=== PATIENT | female | born 1945 | race Caucasian/White ===

== ENCOUNTER 2018-05-14 14:06 | Emergency (ER) | payer OTHER ==
--- NOTE | 2018-05-14 15:03 | ED UPPER/LOWER EXTREMITY COMPL ---
History of Present Illness General Chief Complaint: Fall Stated Complaint: KNEE PAIN RADIATING UP AND DOWN S/P FALL LAST PM Source: patient Exam Limitations: no limitations Vital Signs & Intake/Output Vital Signs & Intake/Output Vital Signs Date Time Temp Pulse Resp B/P B/P Pulse O2 O2 Flow FiO2 Mean Ox Delivery Rate 05/14 1629 74 18 155/82 97 05/14 1621 Room Air 05/14 1411 98.1 98 15 126/78 95 Room Air Room Air Triage Note: PT TO ED FOR L KNEE PAIN S/P FALL YESTERDAY. PAIN RADIATES UP AND DOWN L LEG. MEDICATED IN TRIAGE. Triage Nurses Notes Reviewed? yes Onset: Abrupt Duration: day(s): (1), constant, continues in ED Timing: recent history Severity: moderate, severe No Modifying Factors: none HPI: 72-year-old female comes into the emergency room with complaints of left knee pain. Patient reports that she fell yesterday onto pavement. Some associated swelling and pain to the left knee. She has pain primarily behind her knee since the fall. It shoots up and down her leg. She comes in for further evaluation. (Biju Guerrero) Allergies Coded Allergies: Penicillins (THROAT CLOSES 05/14/18) cefuroxime (THROAT CLOSES 05/14/18) Reconcile Medications Meloxicam (Mobic) 7.5 MG TABLET 1 TAB PO DAILY pain (Rustam Staples DO) Past History Travel History Traveled to [place] past 21 day No Medical History Any Pertinent Medical History? see below for history Neurological: NONE EENT: NONE Cardiovascular: hypertension, hyperlipidemia Respiratory: COPD Gastrointestinal: NONE Hepatic: NONE Renal: NONE Musculoskeletal: NONE Psychiatric: NONE Endocrine: NONE Blood Disorders: NONE Cancer(s): NONE History of MRSA: No History of VRE: No History of CDIFF: No Surgical History Surgical History: non-contributory Psychosocial History Who do you live with Family Services at Home None What is your primary language Icelandic Tobacco Use: Quit >30 days ago ETOH Use: denies use Illicit Drug Use: denies illicit drug use Family History Hx Contributory? No (Biju Guerrero) Review of Systems Review of Systems Constitutional: Reports: no symptoms. EENTM: Reports: no symptoms. Respiratory: Reports: no symptoms. Cardiovascular: Reports: no symptoms. Gastrointestinal/Abdominal: Reports: no symptoms. Genitourinary: Reports: no symptoms. Musculoskeletal: Reports: see HPI. Skin: Reports: no symptoms. Neurological/Psychological: Reports: no symptoms. Hematologic/Endocrine: Reports: no symptoms. Immunological: Reports: no symptoms. All Other Systems: Reviewed and Negative (Biju Guerrero) Physical Exam Physical Exam General Appearance: well developed/nourished, mild distress Head: atraumatic Eyes: Bilateral: normal appearance. Ears, Nose, Throat: normal ENT inspection, hearing grossly normal Neck: normal inspection Cardiovascular/Respiratory: no respiratory distress Back: normal inspection Knee Left: normal range of motion, soft tissue tenderness, Tenderness over the popliteal fossa/hamstring muscles Neurologic/Tendon: normal sensation, normal motor functions, normal tendon functions, responds to pain, no evidence tendon injury, no pulse deficit Skin: intact, normal color, warm/dry (Biju Guerrero) Progress Differential Diagnosis: contusion, dislocation, fracture, sprain, tendon injury, Soares's cyst Diagnostic Imaging: Viewed by Me: Radiology Read. Discussed w/RAD: Radiology Read. Radiology Impression: PATIENT: MARCELL PINTO PRESENT AGE: 72 PATIENT ACCOUNT NO: [id number] : 47 LOCATION: [facility] ORDERING PHYSICIAN: Biju BECKWITH SERVICE DATE: 05/14/18 EXAM TYPE : RAD - XRY-KNEE COMPLETE LEFT EXAMINATION: XR KNEE, LEFT CLINICAL INFORMATION: Left knee pain. COMPARISON: None TECHNIQUE: Four views of the left knee on 5 images. FINDINGS: Diffuse osteopenia. No acute fracture or dislocation. Joint space height well-maintained at all levels. Minimal spurring in the patellofemoral compartment. No significant knee joint effusion or joint calcifications. Patellar tendon and quadriceps tendon shadows intact. Minimal soft tissue swelling anterior to the patellar tendon. IMPRESSION: 1. No acute fracture or dislocation. 2. Minimal degenerative change in the patellofemoral compartment. 3. Minimal soft tissue swelling anterior to the patellar tendon, possibly a small contusion. Clinical correlation requested. DICTATED BY: Larissa Renee MD DATE/TIME DICTATED:05/14/181517 ELECTROPHYSIOLOGY NURSE PRACTITIONER:VALERIE DATE /TIME TRANSCRIBED:05/14/181517 CONFIDENTIAL, DO NOT COPY WITHOUT APPROPRIATE AUTHORIZATION. <Electronically signed in Other Vendor System> SIGNED BY: Larissa Renee MD 05/14/18 1525 (Biju Guerrero) Plan of Care: Orders Procedure Date/time Status Durable Medical Equipment 05/14 1623 Active (Rustam Staples DO) Departure Departure Disposition: HOME OR SELF CARE Condition: Stable Clinical Impression Primary Impression: Strain of left knee Referrals: Jose L BAUM,Rip Santiago (PCP/Family) Penny Pleitez MD Additional Instructions: Take meloxicam as prescribed. Follow-up with orthopedic doctor. Return if any concerns worsening symptoms. Please go over all results of today's visit with your primary care doctor. Contact your primary care doctor to let them know you were here in the emergency room. There may be nonspecific findings which may not be related to your visit today here in the emergency room but may require further evaluation and chronic monitoring by your primary care doctor. If you had a laceration today the chance of foreign body always remains. You should follow-up with your primary care doctor for recheck in 3-5 days for a wound check. If you had an x-ray done there is a chance that a fracture could have been missed on initial read and you should follow-up with your primary care doctor for repeat x-rays if symptoms persist. If your blood pressure was elevated here in the emergency room please have rechecked by [facility] primary care doctor within the next 48. If you were prescribed a narcotic here in the emergency room or any type of controlled substances you're not allowed to drive while taking this medication or operate any type of heavy machinery. Narcotics can make you feel lightheaded dizziness nausea and can cause constipation. You may need to cotton picker a stool softener. Thank you for choosing [facility] emergency room. Please return to the emergency room immediately if you have any other concerns worsening of symptoms. Departure Forms: Customer Survey General Discharge Information Prescriptions: Current Visit Scripts Meloxicam (Mobic) 1 TAB PO DAILY #15 TAB (Biju Guerrero) PA/[employer] Co-Sign Statement Statement: ED Attending supervision documentation- [X] I saw and evaluated the patient. I have also reviewed all the pertinent lab results and diagnostic results. I agree with the findings and the plan of care as documented in the PA's/[employer]'s documentation. [] I have reviewed the ED Record and agree with the PA's/[employer]'s documentation. [] Additions or exceptions (if any) to the PAs/[employer]'s note and plan are summarized below: [] 05/14/18 4:29 I have seen and personally evaluated this patient and am in agreement with the PA's plan of care to discharge home. (Jhoan BAIRD,Rustam Thomas) Procedures Splinting Location: left knee Manual Alignment Performed: No Pre-Made Type: knee imobilizer Splint Applied By: splint applied by me Pre-Proc Neuro Vasc Exam: normal Post-Proc Neuro Vasc Exam: normal (Biju Guerrero)
--- NOTE | 2018-05-14 15:25 | RADIOLOGY REPORT ---
EXAMINATION: XR KNEE, LEFT CLINICAL INFORMATION: Left knee pain. COMPARISON: None TECHNIQUE: Four views of the left knee on 5 images. FINDINGS: Diffuse osteopenia. No acute fracture or dislocation. Joint space height well-maintained at all levels. Minimal spurring in the patellofemoral compartment. No significant knee joint effusion or joint calcifications. Patellar tendon and quadriceps tendon shadows intact. Minimal soft tissue swelling anterior to the patellar tendon. IMPRESSION: 1. No acute fracture or dislocation. 2. Minimal degenerative change in the patellofemoral compartment. 3. Minimal soft tissue swelling anterior to the patellar tendon, possibly a small contusion. Clinical correlation requested.
[2018-05-14] MEDS ORDERED: MOBIC7.5 M1 PO (16:22)
[2018-05-14 16:29] VITALS: BP 155/82
== END 2018-05-14 16:33 ==
LOC: ERH 14:06
DX: S83.92XA Sprain of unspecified site of left knee, initial encounter (principal); W19.XXXA Unspecified fall, initial encounter; Y92.9 Unspecified place or not applicable; Y93.9 Activity, unspecified; I10 Essential (primary) hypertension; E78.5 Hyperlipidemia, unspecified; J44.9 Chronic obstructive pulmonary disease, unspecified
CPT/HCPCS: 73562-LT